=== PATIENT | male | born 1960 | race Caucasian/White ===

== ENCOUNTER 2022-01-18 12:46 | Day surgery (SDC) | payer OTHER ==
[2022-01-18 12:02] VITALS: BMI 26.6
[2022-01-18] MEDS ORDERED: MIDAZOLAM HCL 2 MG/2 ML SINGLE DOSE VIAL ONE (13:20)
[2022-01-18] MEDS ORDERED: PROPOFOL 20 ML ONE (13:20)
[2022-01-18] MEDS ORDERED: DEXAMETHASONE SOD PHOSPHATE 4 MG/1 ML VIAL ONE (13:20)
[2022-01-18] MEDS ORDERED: SUCCINYLCHOLINE CHLORIDE 200 MG/10 ML SYRINGE ONE (13:20)
[2022-01-18] MEDS ORDERED: LIDOCAINE HCL/PF 2% SDV 5ML VIAL ONE (13:20)
[2022-01-18] MEDS ORDERED: ceFAZolin SODIUM 1 GM VIAL IVPB ONE (14:00)
[2022-01-18 15:08] VITALS: TEMP 97.8
[2022-01-18] MEDS ORDERED: ONDANSETRON 4 MG/2 ML VIAL IVPUSH PRN (15:13)
[2022-01-18] MEDS ORDERED: oxyCODONE HCL 5 MG TABLET PO PRN ×2 (15:13)
[2022-01-18] MEDS ORDERED: LACTATED RINGERS SOLUTION 1,000 ML IV SCH (15:15)
[2022-01-18 16:34] VITALS: PULSE 81
[2022-01-18 16:51] VITALS: BP 155/86
[2022-01-18] MEDS ORDERED: ELECTROLYTE-148 SOLN 1,000 ML IV SCH (17:15)
== END 2022-01-18 17:34 | disposition home or self-care (01) ==
LOC: JASU-SURG 12:46
PROVIDERS: ATTEND Urology
PROC: 0TC78ZZ Extirpation of Matter from Left Ureter, Via Natural or Artificial Opening Endoscopic (ICD-10-PCS; principal; 2022-01-18 13:00)
PROC: 0T778DZ Dilation of Left Ureter with Intraluminal Device, Via Natural or Artificial Opening Endoscopic (ICD-10-PCS; 2022-01-18 13:00)
DX: N20.1 Calculus of ureter (principal)
CPT/HCPCS: 76000-TC-FY; 94760